=== PATIENT | male | born 1950 | race African-American/Black ===

== ENCOUNTER 2021-05-30 21:06 | Emergency (ER) | payer MEDICARE ==
[~2021-05-30] VITALS: Ht 180.3 cm; Wt 99.8 kg
[~2021-05-30 21:06] MED LIST: ASPIR 8181 MG PO; DUTOPROL 50-121 EACH PO; LIPITOR20 MG PO
== END 2021-05-30 23:15 | disposition home or self-care (01) ==
LOC: ER 22:35
DX: Z46.6 Encounter for fitting and adjustment of urinary device (principal); R39.89 Other symptoms and signs involving the genitourinary system

== ENCOUNTER 2021-05-31 02:38 | Emergency (ER) | payer MEDICARE ==
[~2021-05-31] VITALS: Ht 180.3 cm; Wt 99.8 kg
== END 2021-05-31 03:45 | disposition home or self-care (01) ==
LOC: ER 02:47
DX: T83.011A Breakdown (mechanical) of indwelling urethral catheter, initial encounter (principal); I10 Essential (primary) hypertension; E11.9 Type 2 diabetes mellitus without complications; E78.5 Hyperlipidemia, unspecified
CPT/HCPCS: 51700; 99283

== ENCOUNTER 2021-06-07 21:30 | Emergency (ER) | payer MEDICARE ==
[~2021-06-07] VITALS: Ht 180.3 cm; Wt 99.8 kg
[2021-06-07 22:21] LABS: BASOPHILS % 0.3 % (0.0-1.0); EOSINOPHILS # (AUTO) 0.1 (0.0-0.4); EOSINOPHILS % 1.1 % (0.0-6.0); HEMATOCRIT 38.8 % (38.2-49.6); HEMOGLOBIN 12.5 g/dL (14.0-18.0); LYMPHOCYTES # (AUTO) 2.4 (1.0-3.2); LYMPHOCYTES % 25.7 % (18.0-39.1); MEAN CORPUSCULAR HEMOGLOBIN 30.8 pg (28-32); MEAN CORPUSCULAR HGB CONC 32.2 g/dL (31-35); MEAN CORPUSCULAR VOLUME 95.6 fL (81-99); MONOCYTES % 10.7 % (4.4-11.3); NEUTROPHILS # (AUTO) 5.7 (2.1-6.9); NEUTROPHILS % 61.8 % (38.7-80.0); PLATELET COUNT 265 x10e3/uL (140-360); RED BLOOD COUNT 4.06 x10e6/uL (4.3-5.7); RED CELL DISTRIBUTION WIDTH 12.8 % (11.7-14.4)
[2021-06-07] MEDS ORDERED: LACTATED RINGER'S 1,000 ML INJ ONE (22:30)
[2021-06-07 22:35] LABS: ANION GAP 18.2 mmol/L (8-16); CALCIUM 8.8 mg/dL (8.4-10.2); CREATININE, SERUM 1.35 mg/dL (0.72-1.25); POTASSIUM 3.2 mmol/L (3.5-5.1)
[2021-06-08 00:09] LABS: CLARITY,URINE TURBID (CLEAR); COLOR,URINE RED (YELLOW); KETONES,URINE 1+ (NEGATIVE); LEUKOCYTE ESTERASE ,URINE NEGATIVE (NEGATIVE); NITRITE,URINE POSITIVE (NEGATIVE); PROTEIN,URINE DIPSTICK >=300 (NEGATIVE); URINE UROBILINOGEN 1 mg/dL (0.2 - 1)
[2021-06-08 00:14] LABS: BACTERIA,URINE MODERATE /HPF; EPITHELIAL CELLS,URINE FEW /LPF; RBC,URINE >50 /HPF (0-5)
[2021-06-08] MEDS ORDERED: CEPHALEXIN500 MG PO ×2 (00:30→00:53)
[2021-06-08] MEDS ORDERED: CEFTRIAXONE 1 GM VIAL IV ONE (00:30)
[2021-06-08] MEDS ORDERED: ULTRAM50 MG PO ×2 (00:30→00:53)
[2021-06-08] MEDS ORDERED: SODIUM CHLORIDE 0.9% 50ML 50 ML ONE (00:48)
[2021-06-08] MEDS ORDERED: TRAMADOL HCL 50 MG TAB PO ONE (01:00)
== END 2021-06-08 02:45 | disposition home or self-care (01) ==
LOC: ER 21:40
DX: R31.9 Hematuria, unspecified (principal); I10 Essential (primary) hypertension; E11.9 Type 2 diabetes mellitus without complications; E78.5 Hyperlipidemia, unspecified
CPT/HCPCS: 36415; 80048; 81001; 85025; 87086; 99284; J0696; J7121

== ENCOUNTER 2021-07-02 00:55 | Emergency (ER) | payer MEDICARE ==
[~2021-07-02] VITALS: Ht 180.3 cm; Wt 99.8 kg
[~2021-07-02 00:55] MED LIST changes: +CEPHALEXIN500 MG PO; +ULTRAM50 MG PO
[2021-07-02] MEDS ORDERED: METFORMIN HCL500 MG PO (01:38)
== END 2021-07-02 01:48 | disposition home or self-care (01) ==
LOC: ER 01:36
DX: E11.65 Type 2 diabetes mellitus with hyperglycemia (principal); I10 Essential (primary) hypertension
CPT/HCPCS: 36415; 82948; 99283

== ENCOUNTER 2021-11-01 14:24 | Emergency (ER) | payer MEDICARE ==
[~2021-11-01] VITALS: Ht 180.3 cm; Wt 99.8 kg
[~2021-11-01 14:24] MED LIST changes: +METFORMIN HCL500 MG PO
[2021-11-01] MEDS ORDERED: PROTONIX20 MG PO (14:45)
[2021-11-01] MEDS ORDERED: ONDANSETRON ODT4 MG PO (14:45)
[2021-11-01] MEDS ORDERED: REGLAN10 MG PO (14:50)
== END 2021-11-01 16:01 | disposition home or self-care (01) ==
LOC: ER 14:50
DX: R11.0 Nausea (principal); R94.31 Abnormal electrocardiogram [ECG] [EKG]; I10 Essential (primary) hypertension; E11.9 Type 2 diabetes mellitus without complications; E78.5 Hyperlipidemia, unspecified; Z86.39 Personal history of other endocrine, nutritional and metabolic disease
CPT/HCPCS: 93005; 99282

== ENCOUNTER → 2024-09-13 | Outpatient (REF) | payer MEDICARE ==
[~2024-09-13] MED LIST changes: +DOXAZOSIN MESYLA2 MG PO; +FARXIGA5 MG PO; +FINASTERIDE5 MG PO; +ISOSORBIDE MONO30 MG PO; +LOSARTAN POTAS100 MG PO; +ONDANSETRON ODT4 MG PO; +PROTONIX20 MG PO; +RAPAFLO4 MG PO; +REGLAN10 MG PO
[2024-09-13 10:32] LABS: BASOPHILS % 0.3 % (0.0-1.0); EOSINOPHILS # (AUTO) 0.1 (0.0-0.4); EOSINOPHILS % 1.2 % (0.0-6.0); HEMATOCRIT 42.2 % (38.2-49.6); HEMOGLOBIN 13.6 g/dL (14.0-18.0); LYMPHOCYTES # (AUTO) 2.3 (1.0-3.2); LYMPHOCYTES % 30.5 % (18.0-39.1); MEAN CORPUSCULAR HEMOGLOBIN 31.6 pg (28-32); MEAN CORPUSCULAR HGB CONC 32.2 g/dL (31-35); MEAN CORPUSCULAR VOLUME 97.9 fL (81-99); MONOCYTES # (AUTO) 0.6 (0.2-0.8); MONOCYTES % 7.9 % (4.4-11.3); NEUTROPHILS # (AUTO) 4.4 (2.1-6.9); PLATELET COUNT 198 x10e3/uL (140-360); RED BLOOD COUNT 4.31 x10e6/uL (4.3-5.7); RED CELL DISTRIBUTION WIDTH 12.2 % (11.7-14.4); WHITE BLOOD COUNT 7.38 x10e3/uL (4.8-10.8)
[2024-09-13 10:51] LABS: ANION GAP 13.2 mmol/L (8-16); CALCIUM 9.4 mg/dL (8.4-10.2); CREATININE, SERUM 1.15 mg/dL (0.72-1.25)
[2024-09-13 10:57] LABS: POTASSIUM 3.2 mmol/L (3.5-5.1)
== END ==
LOC: RAD 05:00 → EDSTATUS 09-14 08:00
PROVIDERS: ATTEND Urology
DX: Z01.818 Encounter for other preprocedural examination (principal); N40.1 Benign prostatic hyperplasia with lower urinary tract symptoms; R31.29 Other microscopic hematuria; R39.14 Feeling of incomplete bladder emptying
CPT/HCPCS: 36415; 71046; 80048; 85025; 93005

== ENCOUNTER → 2024-10-21 | Outpatient (REF) | payer MEDICARE ==
[~2024-10-21] MED LIST changes: +CEFTRIAXONE 1 GM VIAL ONE; +FENTANYL CITRATE/PF 100MCG/2 ML INJ ONE; +GENTAMICIN 80MG/NS 100 ML 0 ML IV ONE; +LIDOCAINE HCL 2% LOCAL INJ 5 ML SDV VIAL INJ ONE; +PROPOFOL IV EMULSION 10 MG/ML 20 ML VIAL ONE; +SODIUM CHLORIDE 0.9% 1000 ML BAG ONE
[2024-10-21 11:44] LABS: BASOPHILS % 0.3 % (0.0-1.0); EOSINOPHILS # (AUTO) 0.1 (0.0-0.4); HEMATOCRIT 42.2 % (38.2-49.6); HEMOGLOBIN 13.4 g/dL (14.0-18.0); LYMPHOCYTES # (AUTO) 2.1 (1.0-3.2); LYMPHOCYTES % 30.1 % (18.0-39.1); MEAN CORPUSCULAR HEMOGLOBIN 31.3 pg (28-32); MEAN CORPUSCULAR HGB CONC 31.8 g/dL (31-35); MEAN CORPUSCULAR VOLUME 98.6 fL (81-99); MONOCYTES # (AUTO) 0.5 (0.2-0.8); MONOCYTES % 6.9 % (4.4-11.3); NEUTROPHILS # (AUTO) 4.4 (2.1-6.9); NEUTROPHILS % 61.6 % (38.7-80.0); PLATELET COUNT 170 x10e3/uL (140-360); RED BLOOD COUNT 4.28 x10e6/uL (4.3-5.7); RED CELL DISTRIBUTION WIDTH 12.4 % (11.7-14.4); WHITE BLOOD COUNT 7.07 x10e3/uL (4.8-10.8)
[2024-10-21 12:12] LABS: ANION GAP 14.4 mmol/L (8-16); CALCIUM 9.1 mg/dL (8.4-10.2); CREATININE, SERUM 1.1 mg/dL (0.72-1.25)
[2024-10-21 12:14] LABS: POTASSIUM 3.4 mmol/L (3.5-5.1)
== END | disposition home or self-care (01) ==
LOC: LAB 05:00 → OR 05:00 → EDSTATUS 12:30 → LAB 15:34 → EDSTATUS 10-30 14:30
PROVIDERS: ATTEND Urology
DX: N40.0 Benign prostatic hyperplasia without lower urinary tract symptoms (principal); Z53.8 Procedure and treatment not carried out for other reasons
CPT/HCPCS: 36415; 80048; 84152; 85025; J7030; J0696; J1580; J2003

== ENCOUNTER 2024-11-02 10:47 | Inpatient (IN) | payer MEDICARE ==
[2024-10-28 10:43] LABS: BASOPHILS % 0.3 % (0.0-1.0); EOSINOPHILS # (AUTO) 0.1 (0.0-0.4); EOSINOPHILS % 1.7 % (0.0-6.0); HEMATOCRIT 39.7 % (38.2-49.6); HEMOGLOBIN 12.5 g/dL (14.0-18.0); LYMPHOCYTES # (AUTO) 2.3 (1.0-3.2); LYMPHOCYTES % 35.1 % (18.0-39.1); MEAN CORPUSCULAR HEMOGLOBIN 31.3 pg (28-32); MEAN CORPUSCULAR HGB CONC 31.5 g/dL (31-35); MEAN CORPUSCULAR VOLUME 99.5 fL (81-99); MONOCYTES # (AUTO) 0.4 (0.2-0.8); MONOCYTES % 6.3 % (4.4-11.3); NEUTROPHILS # (AUTO) 3.7 (2.1-6.9); NEUTROPHILS % 56.3 % (38.7-80.0); PLATELET COUNT 175 x10e3/uL (140-360); RED BLOOD COUNT 3.99 x10e6/uL (4.3-5.7); RED CELL DISTRIBUTION WIDTH 12.2 % (11.7-14.4); WHITE BLOOD COUNT 6.53 x10e3/uL (4.8-10.8)
[2024-10-28 11:42] LABS: ANION GAP 15.3 mmol/L (8-16); CALCIUM 9.2 mg/dL (8.4-10.2); CREATININE, SERUM 1.15 mg/dL (0.72-1.25)
[2024-10-28 11:45] LABS: POTASSIUM 3.3 mmol/L (3.5-5.1)
[~2024-11-02] VITALS: Ht 180.3 cm; Wt 107.6 kg
[~2024-11-02 10:47] MED LIST changes: -CEFTRIAXONE 1 GM VIAL ONE; -FENTANYL CITRATE/PF 100MCG/2 ML INJ ONE; -GENTAMICIN 80MG/NS 100 ML 0 ML IV ONE; -LIDOCAINE HCL 2% LOCAL INJ 5 ML SDV VIAL INJ ONE; -PROPOFOL IV EMULSION 10 MG/ML 20 ML VIAL ONE; -SODIUM CHLORIDE 0.9% 1000 ML BAG ONE
[2024-11-02] MEDS: CEFTRIAXONE 1 GM VIAL ONE (11:41)
[2024-11-02] MEDS: SODIUM CHLORIDE 0.9% 1000ML 1,000 ML ONE (11:41)
[2024-11-02] MEDS: GENTAMICIN 80MG/NS 100 ML 200 ML IV ONE (11:41)
[2024-11-02] MEDS ORDERED: ACETAMINOPHEN/CODEINE 300MG - 30MG TAB PO PRN (13:45)
[2024-11-02] MEDS ORDERED: DIPHENHYDRAMINE HCL 25 MG CAP PO PRN (13:45)
[2024-11-02] MEDS ORDERED: ACETAMINOPHEN 1000 MG/100 ML IV PRN (13:45)
[2024-11-02] MEDS ORDERED: ONDANSETRON HCL INJ 2MG/ML 2ML 2 MG/ML VIAL IV PRN (13:45)
[2024-11-02] MEDS ORDERED: LIDOCAINE HCL 2% LOCAL INJ 5 ML SDV VIAL INJ ONE ×2 (14:05→16:53)
[2024-11-02] MEDS ORDERED: SEVOFLURANE INHAL SOLN 250 ML PEN BTL ONE (14:05)
[2024-11-02] MEDS ORDERED: PROPOFOL IV EMULSION 10 MG/ML 20 ML VIAL ONE ×4 (14:05→16:53)
[2024-11-02] MEDS ORDERED: FENTANYL CITRATE/PF 100MCG/2 ML INJ ONE ×2 (14:05→16:15)
[2024-11-02] MEDS ORDERED: DEXAMETHASONE SOD PHOS INJ 4 MG/ML SDV ONE (15:43)
[2024-11-02] MEDS ORDERED: ONDANSETRON HCL INJ 2MG/ML 2ML 2 MG/ML VIAL ONE (15:43)
[2024-11-02] MEDS ORDERED: EPHEDRINE SULFATE INJ 50 MG/ML VIAL ONE (16:46)
[2024-11-02 17:31] LABS: BASOPHILS % 0.1 % (0.0-1.0); EOSINOPHILS % 0.3 % (0.0-6.0); HEMATOCRIT 30.5 % (38.2-49.6); HEMOGLOBIN 9.3 g/dL (14.0-18.0); LYMPHOCYTES # (AUTO) 1.9 (1.0-3.2); MEAN CORPUSCULAR HEMOGLOBIN 31.1 pg (28-32); MEAN CORPUSCULAR HGB CONC 30.5 g/dL (31-35); MONOCYTES # (AUTO) 0.4 (0.2-0.8); MONOCYTES % 5.5 % (4.4-11.3); NEUTROPHILS # (AUTO) 4.7 (2.1-6.9); NEUTROPHILS % 66.8 % (38.7-80.0); PLATELET COUNT 123 x10e3/uL (140-360); RED BLOOD COUNT 2.99 x10e6/uL (4.3-5.7); RED CELL DISTRIBUTION WIDTH 12.6 % (11.7-14.4); WHITE BLOOD COUNT 7.07 x10e3/uL (4.8-10.8)
[2024-11-02 17:45] LABS: CREATININE, SERUM 0.79 mg/dL (0.72-1.25)
[2024-11-02] MEDS: METOPROLOL TARTRATE 50 MG TAB PO STA (18:35)
[2024-11-02 20:00] VITALS: BP 111/83; PULSE 119; RESP 20; TEMP 97.8; O2SAT 95
[2024-11-02 21:00] VITALS: BP 111/83; PULSE 119; RESP 20; TEMP 97.8; O2SAT 95
[2024-11-02] MEDS: PHENAZOPYRIDINE HCL 100 MG TAB PO PRN (21:10)
[2024-11-02] MEDS: SENNA-S TABLET PO SCH (21:10)
[2024-11-02] MEDS: SODIUM CHLORIDE 0.9% 1000ML 1,000 ML IV SCH (21:11)
[2024-11-03] VITALS (12 sets, daily range): BP systolic 111–169; BP diastolic 83–108; PULSE 50–105; RESP 17–20; TEMP 97.7–98.6; O2SAT 96–100
[2024-11-03 05:32] LABS: BASOPHILS % 0.1 % (0.0-1.0); EOSINOPHILS % 0.1 % (0.0-6.0); HEMATOCRIT 36.2 % (38.2-49.6); HEMOGLOBIN 11.3 g/dL (14.0-18.0); LYMPHOCYTES # (AUTO) 0.7 (1.0-3.2); LYMPHOCYTES % 7.7 % (18.0-39.1); MEAN CORPUSCULAR HGB CONC 31.2 g/dL (31-35); MEAN CORPUSCULAR VOLUME 99.5 fL (81-99); MONOCYTES # (AUTO) 0.4 (0.2-0.8); MONOCYTES % 4.4 % (4.4-11.3); NEUTROPHILS # (AUTO) 8.1 (2.1-6.9); NEUTROPHILS % 87.3 % (38.7-80.0); PLATELET COUNT 160 x10e3/uL (140-360); RED BLOOD COUNT 3.64 x10e6/uL (4.3-5.7); RED CELL DISTRIBUTION WIDTH 12.4 % (11.7-14.4); WHITE BLOOD COUNT 9.25 x10e3/uL (4.8-10.8)
[2024-11-03 06:04] LABS: ANION GAP 13.9 mmol/L (8-16); CREATININE, SERUM 1.01 mg/dL (0.72-1.25); POTASSIUM 3.9 mmol/L (3.5-5.1)
[2024-11-03] MEDS: FINASTERIDE 5 MG TAB PO SCH (10:32)
[2024-11-03] MEDS: FUROSEMIDE INJ 10 MG/ML 4 ML VIAL IV ONE (10:32)
[2024-11-03] MEDS: LOSARTAN POTASSIUM 100 MG TAB PO SCH (10:33)
[2024-11-03] MEDS: DOXAZOSIN MESYLATE 2 MG TAB PO SCH (10:33)
[2024-11-03] MEDS: POTASSIUM CHLORIDE 10MEQ EA PO ONE (10:34)
[2024-11-03] MEDS: ISOSORBIDE MONONITRATE 30 MG TAB CR PO SCH (10:35)
[2024-11-03] MEDS: ATORVASTATIN 20 MG TAB PO SCH (20:26)
[2024-11-04] VITALS (9 sets, daily range): BP systolic 143–164; BP diastolic 93–101; PULSE 58–97; RESP 16–18; TEMP 97.5–98.2; O2SAT 94–100
[2024-11-04 05:27] LABS: BASOPHILS % 0.2 % (0.0-1.0); EOSINOPHILS # (AUTO) 0.1 (0.0-0.4); EOSINOPHILS % 0.5 % (0.0-6.0); HEMATOCRIT 31.5 % (38.2-49.6); HEMOGLOBIN 10.5 g/dL (14.0-18.0); LYMPHOCYTES # (AUTO) 2.3 (1.0-3.2); LYMPHOCYTES % 23.2 % (18.0-39.1); MEAN CORPUSCULAR HEMOGLOBIN 31.8 pg (28-32); MEAN CORPUSCULAR HGB CONC 33.3 g/dL (31-35); MEAN CORPUSCULAR VOLUME 95.5 fL (81-99); MONOCYTES # (AUTO) 0.9 (0.2-0.8); MONOCYTES % 8.7 % (4.4-11.3); NEUTROPHILS # (AUTO) 6.5 (2.1-6.9); NEUTROPHILS % 67.1 % (38.7-80.0); PLATELET COUNT 159 x10e3/uL (140-360); RED CELL DISTRIBUTION WIDTH 12.9 % (11.7-14.4); WHITE BLOOD COUNT 9.75 x10e3/uL (4.8-10.8)
[2024-11-04 06:10] LABS: ANION GAP 12.2 mmol/L (8-16); CALCIUM 8.1 mg/dL (8.4-10.2); CREATININE, SERUM 1.02 mg/dL (0.72-1.25)
[2024-11-04 06:11] LABS: POTASSIUM 3.2 mmol/L (3.5-5.1)
[2024-11-04 15:05] LABS: CHOL/HDL RATIO 2.5 (3.9-4.7)
[2024-11-05] VITALS (9 sets, daily range): BP systolic 134–168; BP diastolic 69–106; PULSE 55–81; RESP 17–20; TEMP 97.6–98.8; O2SAT 94–98
[2024-11-05 06:09] LABS: BASOPHILS % 0.4 % (0.0-1.0); EOSINOPHILS # (AUTO) 0.1 (0.0-0.4); EOSINOPHILS % 0.6 % (0.0-6.0); HEMATOCRIT 31.8 % (38.2-49.6); HEMOGLOBIN 10.5 g/dL (14.0-18.0); LYMPHOCYTES # (AUTO) 2.7 (1.0-3.2); LYMPHOCYTES % 26.5 % (18.0-39.1); MEAN CORPUSCULAR HEMOGLOBIN 31.3 pg (28-32); MEAN CORPUSCULAR VOLUME 94.9 fL (81-99); MONOCYTES # (AUTO) 0.8 (0.2-0.8); NEUTROPHILS # (AUTO) 6.5 (2.1-6.9); NEUTROPHILS % 64.2 % (38.7-80.0); PLATELET COUNT 158 x10e3/uL (140-360); RED BLOOD COUNT 3.35 x10e6/uL (4.3-5.7); RED CELL DISTRIBUTION WIDTH 12.9 % (11.7-14.4); WHITE BLOOD COUNT 10.06 x10e3/uL (4.8-10.8)
[2024-11-05 06:27] LABS: ANION GAP 14.1 mmol/L (8-16); CALCIUM 8.3 mg/dL (8.4-10.2); CREATININE, SERUM 0.93 mg/dL (0.72-1.25)
[2024-11-05 06:31] LABS: POTASSIUM 3.1 mmol/L (3.5-5.1)
[2024-11-05] MEDS: METOPROLOL TARTRATE 25 MG TAB PO SCH (12:40)
[2024-11-05] MEDS: ACETAMINOPHEN 325 MG TAB PO PRN (17:24)
[2024-11-06] VITALS (10 sets, daily range): BP systolic 141–169; BP diastolic 88–115; PULSE 50–70; RESP 17–20; TEMP 97.5–99.3; O2SAT 95–99
[2024-11-06 05:51] LABS: BASOPHILS % 0.4 % (0.0-1.0); EOSINOPHILS # (AUTO) 0.2 (0.0-0.4); EOSINOPHILS % 1.8 % (0.0-6.0); HEMATOCRIT 30.8 % (38.2-49.6); HEMOGLOBIN 10.3 g/dL (14.0-18.0); LYMPHOCYTES # (AUTO) 2.4 (1.0-3.2); LYMPHOCYTES % 28.5 % (18.0-39.1); MEAN CORPUSCULAR HEMOGLOBIN 31.3 pg (28-32); MEAN CORPUSCULAR HGB CONC 33.4 g/dL (31-35); MEAN CORPUSCULAR VOLUME 93.6 fL (81-99); MONOCYTES # (AUTO) 0.7 (0.2-0.8); MONOCYTES % 8.6 % (4.4-11.3); NEUTROPHILS % 60.5 % (38.7-80.0); PLATELET COUNT 153 x10e3/uL (140-360); RED BLOOD COUNT 3.29 x10e6/uL (4.3-5.7); RED CELL DISTRIBUTION WIDTH 12.7 % (11.7-14.4); WHITE BLOOD COUNT 8.29 x10e3/uL (4.8-10.8)
[2024-11-06 06:22] LABS: CALCIUM 8.4 mg/dL (8.4-10.2); CREATININE, SERUM 0.88 mg/dL (0.72-1.25)
[2024-11-06] MEDS: NIFEDIPINE CR 30 MG TAB PO SCH (09:53)
[2024-11-06] MEDS: HYDRALAZINE HCL 20 MG/ML VIAL IV PRN (17:44)
[2024-11-07] VITALS: BP 140/99; PULSE 60; RESP 18; TEMP 97.9; O2SAT 96
[2024-11-07 04:00] VITALS: BP 141/99; PULSE 65; RESP 18; TEMP 98.1; O2SAT 96
[2024-11-07 07:30] VITALS: PULSE 66; RESP 18; O2SAT 95
[2024-11-07 07:52] VITALS: BP 134/90; PULSE 66; RESP 19; TEMP 98.1; O2SAT 98
[2024-11-07 10:39] VITALS: BP 134/90; PULSE 66; RESP 19; TEMP 98.1; O2SAT 98
== END 2024-11-07 10:39 | disposition home or self-care (01) | DRG 713 ==
LOC: OR 10:47 → PACU V 13:36 → MED/SURG2 19:37
PROVIDERS: ADMIT Urology; ATTEND Urology
PROC: 0TCB8ZZ Extirpation of Matter from Bladder, Via Natural or Artificial Opening Endoscopic (ICD-10-PCS; 2024-11-02)
PROC: 0T9B70Z Drainage of Bladder with Drainage Device, Via Natural or Artificial Opening (ICD-10-PCS; 2024-11-02)
PROC: BT141ZZ Fluoroscopy of Kidneys, Ureters and Bladder using Low Osmolar Contrast (ICD-10-PCS; 2024-11-02)
PROC: 0V508ZZ Destruction of Prostate, Via Natural or Artificial Opening Endoscopic (ICD-10-PCS; principal; 2024-11-02 15:05)
DX: N40.1 Benign prostatic hyperplasia with lower urinary tract symptoms (principal); A41.9 Sepsis, unspecified organism; N13.8 Other obstructive and reflux uropathy; N39.0 Urinary tract infection, site not specified; E11.9 Type 2 diabetes mellitus without complications; I44.0 Atrioventricular block, first degree; I48.0 Paroxysmal atrial fibrillation; N32.81 Overactive bladder; R31.0 Gross hematuria; I10 Essential (primary) hypertension; E78.5 Hyperlipidemia, unspecified; N28.1 Cyst of kidney, acquired; M47.9 Spondylosis, unspecified; E66.9 Obesity, unspecified; Z68.33 Body mass index [BMI] 33.0-33.9, adult; Z79.82 Long term (current) use of aspirin; Z79.84 Long term (current) use of oral hypoglycemic drugs; Z82.49 Family history of ischemic heart disease and other diseases of the circulatory system
CPT/HCPCS: 36415; 74420; 80048; 80061; 82948; 83036; 83735; 85025; 88300; 93005; 93306; 94799; C1758; J0360; J0696; J1100; J1580; J1940; J2003; J2405; J7030

== ENCOUNTER 2025-02-22 19:13 | Emergency (ER) | payer MEDICARE ==
[~2025-02-22] VITALS: Ht 180.3 cm; Wt 106.6 kg
[2025-02-22 20:10] VITALS: TEMP 98.5
[2025-02-22 20:54] LABS: BASOPHILS % 0.2 % (0.0-1.0); EOSINOPHILS % 0.6 % (0.0-6.0); HEMATOCRIT 34.8 % (38.2-49.6); HEMOGLOBIN 11.5 g/dL (14.0-18.0); MEAN CORPUSCULAR HEMOGLOBIN 30.9 pg (28-32); MEAN CORPUSCULAR VOLUME 93.5 fL (81-99); MONOCYTES # (AUTO) 0.5 (0.2-0.8); MONOCYTES % 8.2 % (4.4-11.3); NEUTROPHILS # (AUTO) 3.9 (2.1-6.9); NEUTROPHILS % 59.8 % (38.7-80.0); PLATELET COUNT 209 x10e3/uL (140-360); RED BLOOD COUNT 3.72 x10e6/uL (4.3-5.7); RED CELL DISTRIBUTION WIDTH 12.8 % (11.7-14.4); WHITE BLOOD COUNT 6.58 x10e3/uL (4.8-10.8)
[2025-02-22 21:14] LABS: ALBUMIN 4.3 g/dL (3.5-5.0); ALBUMIN/GLOBULIN RATIO 1.4 (0.8-2.0); ANION GAP 17.6 mmol/L (8-16); BILIRUBIN,TOTAL 0.6 mg/dL (0.2-1.2); CALCIUM 8.9 mg/dL (8.4-10.2); CREATININE, SERUM 1.1 mg/dL (0.72-1.25); POTASSIUM 3.6 mmol/L (3.5-5.1); TOTAL PROTEIN 7.3 g/dL (6.5-8.1)
[2025-02-22 21:20] LABS: TROPONIN I 0.005 ng/mL (0-0.300)
[2025-02-22] MEDS: SODIUM CHLORIDE 0.9% 1000ML 2,000 ML IV STA (21:20)
[2025-02-22 23:38] VITALS: PULSE 61; RESP 16; O2SAT 99
[2025-02-24 10:29] LABS: ABG PH 7.29 (7.35-7.45)
== END 2025-02-22 23:39 | disposition home or self-care (01) ==
LOC: ER 19:25
DX: R42 Dizziness and giddiness (principal); E11.65 Type 2 diabetes mellitus with hyperglycemia; I10 Essential (primary) hypertension; E78.5 Hyperlipidemia, unspecified; R94.31 Abnormal electrocardiogram [ECG] [EKG]
CPT/HCPCS: 36415; 80053; 82550; 82805; 82948; 83690; 83880; 84484; 85025; 93005; 99284; J7030